=== PATIENT | female | born 1955 | race Caucasian/White ===

== ENCOUNTER 2017-10-26 07:54 | Emergency (ER) | payer OTHER ==
[~2017-10-26] VITALS: Ht 170.2 cm; Wt 52.8 kg
[2017-10-26 07:58] VITALS: BP 159/76; PULSE 93; RESP 16; TEMP 98.6; O2SAT 94
[2017-10-26] MEDS ORDERED: LOSA50TA PO (08:11)
[2017-10-26] MEDS ORDERED: LEVO25TA4 PO (08:11)
[2017-10-26] MEDS ORDERED: AMBI5TAB PO (08:11)
[2017-10-26] MEDS ORDERED: CLON0.5T PO (08:11)
[2017-10-26] MEDS ORDERED: BUPR150T3 (08:11)
[2017-10-26] MEDS ORDERED: HYDROmorphone HCL PF 1 MG/ML VIAL IV PUSH ONE (08:15)
--- NOTE | 2017-10-26 08:16 | PD ---
HPI Chief Complaint: Injury Time Seen by Provider: 08:04 Travel History International Travel<30 days: No Contact w/Intl Traveler<30days: No Traveled to known affect area: No History of Present Illness HPI Patient presents to the emergency department with right upper extremity pain and swelling after fall. States that she fell last night around 11 PM, but did not come to the emergency department and because everybody was sleep. States that she was going down the steps carrying items wearing flip-flops and she slipped and fell. Try to break her fall but she did not. Did not hit her head and denies LOC she is right-handed. Take any pain medication but try to ice her wrist. Pain of increased pain and swelling her right wrist. She denies fever, chills, vomiting, chest pain, shortness of breath, headache, numbness or tingling. Does report nausea color changes in her wrist secondary to bruising. States that she missed her breathing treatment this morning. PFSH Past Medical History Cardiovascular Problems: Yes (htn on meds) Respiratory: Yes (copd) ?: Not Social History Tobacco Use: Yes Allergies-Medications (Allergen,Severity, Reaction): Coded Allergies: No Known Allergies (Unverified , 10/26/17) Reported Meds & Prescriptions Reported Meds & Active Scripts Active [place] (Hydrocodone-Acetaminophen) 5 Mg-325 Mg Tab 1 Tab PO Q6H PRN 3 Days Reported Clonazepam 0.5 Mg Tab Unknown Dose PO BID Ambien (Zolpidem Tartrate) 5 Mg Tab Unknown Dose PO HS PRN Bupropion HCl ER 24 HR (Bupropion HCl) 150 Mg Tab Unknown Dose DAILY Losartan (Losartan Potassium) 50 Mg Tab Unknown Dose PO DAILY Levothyroxine (Levothyroxine Sodium) 25 Mcg Tab Unknown Dose PO DAILY Review of Systems Except as stated in HPI: all other systems reviewed are Neg Physical Exam Narrative GENERAL: Acute distress. SKIN: Focused skin assessment warm/dry. HEAD: Atraumatic. Normocephalic. EYES: Pupils equal and round. No scleral icterus. No injection or drainage. ENT: No nasal bleeding or discharge. Mucous membranes pink and moist. NECK: Trachea midline. No JVD. CARDIOVASCULAR: Regular rate and rhythm. No murmur appreciated. RESPIRATORY: No accessory muscle use. Positive expiratory wheezing bilaterally. GASTROINTESTINAL: Abdomen soft, non-tender, nondistended. Hepatic and splenic margins not palpable. MUSCULOSKELETAL: Right upper extremity: 2+ radial pulse, cap refill less than 3 seconds, cessation intact, swelling and bruising and tenderness to palpation along the wrist NEUROLOGICAL: Awake and alert. No obvious cranial nerve deficits. Motor grossly within normal limits. Normal speech. PSYCHIATRIC: Appropriate mood and affect; insight and judgment normal. Data Data Last Documented VS Vital Signs Date Time Temp Pulse Resp B/P (MAP) Pulse Ox O2 Delivery O2 Flow Rate FiO2 10/26/17 07:58 98.6 93 16 159/76 (103) 94 Orders Orders Hand, Limited (2vws) (10/26/17 08:10) Wrist, Complete (Zrb2ede) (10/26/17 08:10) Hydromorphone Pf Inj (Dilaudid Pf Inj) (10/26/17 08:15) Forearm (2vws) (10/26/17 08:12) Hydromorphone Pf Inj (Dilaudid Pf Inj) (10/26/17 08:30) Ondansetron Odt (Zofran Odt) (10/26/17 09:00) Albuterol-Ipratropium Neb (Duoneb Neb) (10/26/17 09:00) Splinting (10/26/17 ) MDM Medical Decision Making Medical Screen Exam Complete: Yes Emergency Medical Condition: Yes Interpretation(s) Last Impressions Radius/Ulna X-Ray 10/26/17 0812 Signed Impressions: CONCLUSION: Minimally displaced distal radius and ulnar fractures. Wrist X-Ray 10/26/17 0810 Signed Impressions: CONCLUSION: Minimally displaced distal radius and ulnar fractures. Hand X-Ray 10/26/17 0810 Signed Impressions: CONCLUSION: Minimally displaced distal radius and ulnar fractures. Differential Diagnosis Fracture, dislocation, arthritis, Narrative Course Patient presents to the emergency department status post fall with right upper extremity deformity, neurovascularly intact. She was given IV Dilaudid 1 mg, 4mg zofran ODT,and x-rays ordered. Also given duoneb x 2. 0852: Sugar tong splint ordered 0927: Lungs CTA bilat after breathing treatment and she feels better. Physician Communication Physician Communication 0926: Spoke to Dr. Cortez, orthopedic infection control nurse. Advised that he would like to do surgery, discussed with patient, but she advises that she wants splint and pain medication and will follow-up when she goes back home. She states that she is on vacation and does not want to have surgery. Diagnosis Primary Impression: Radius and ulna distal fracture Qualified Codes: S52.501A - Unspecified fracture of the lower end of right radius, initial encounter for closed fracture; S52.601A - Unspecified fracture of lower end of right ulna, initial encounter for closed fracture Referrals: Colton Cortez MD Med/Other Pt SpecificInfo: Prescription(s) given Scripts Hydrocodone-Acetaminophen ([place]) 5 Mg-325 Mg Tab 1 TAB PO Q6H Y for PAIN for 3 Days, #12 TAB 0 Refills Prov: Yvette Santos MD 10/26/17 Disposition: 01 DISCHARGE HOME Condition: Stable Yvette Santos MD Oct 26, 2017 08:16
[2017-10-26] MEDS ORDERED: HYDROmorphone HCL PF 2 MG/ML VIAL IV PUSH ONE (08:30)
--- NOTE | 2017-10-26 08:43 | RADRPT ---
EXAM DATE: 10/26/2017 8:39 AM EDT AGE/SEX: 62 years / Female INDICATIONS: Fell on stairs CLINICAL DATA: This is the patient's initial encounter. Patient reports that signs and symptoms have been present for 1 day and indicates a pain score of 10/10. MEDICAL/SURGICAL HISTORY: Chronic obstructive pulmonary disease. Hypertension. . Carpal tunnel COMPARISON: No prior exams available for comparison. FINDINGS: Views of the right hand demonstrates fractures of the distal radius and ulna with slight displacement . No other fractures. Soft tissue swelling. Carpus intact. CONCLUSION: Minimally displaced distal radius and ulnar fractures. Electronically signed by: Jadon Gracia MD 10/26/2017 8:42 AM EDT
--- NOTE | 2017-10-26 08:43 | RADRPT ---
EXAM DATE: 10/26/2017 8:33 AM EDT AGE/SEX: 62 years / Female INDICATIONS: Fell on stairs last night CLINICAL DATA: This is the patient's initial encounter. Patient reports that signs and symptoms have been present for 1 day and indicates a pain score of 10/10. MEDICAL/SURGICAL HISTORY: Chronic obstructive pulmonary disease. Hypertension. . Carpal tunnel COMPARISON: [facility], HAND RIGHT LIMITED (2VWS), 10/26/2017. . FINDINGS: Views of the right wrist are obtained. Distal radius and ulnar fractures is slight displacement. Soft tissue swelling. No other fractures CONCLUSION: Minimally displaced distal radius and ulnar fractures. Electronically signed by: Jadon Gracia MD 10/26/2017 8:41 AM EDT
--- NOTE | 2017-10-26 08:44 | RADRPT ---
EXAM DATE: 10/26/2017 8:37 AM EDT AGE/SEX: 62 years / Female INDICATIONS: Fell on stairs CLINICAL DATA: This is the patient's initial encounter. Patient reports that signs and symptoms have been present for 1 day and indicates a pain score of 10/10. MEDICAL/SURGICAL HISTORY: Chronic obstructive pulmonary disease. Hypertension. . carpal tunnel COMPARISON: No prior exams available for comparison. FINDINGS: Views of the right forearm are obtained. Distal radius and ulnar fractures are again seen. Soft tissu e swelling distally. Proximal forearm is intact. No radiopaque foreign bodies seen. CONCLUSION: Minimally displaced distal radius and ulnar fractures. Electronically signed by: Jadon Gracia MD 10/26/2017 8:43 AM EDT
[2017-10-26] MEDS ORDERED: NORC5TAB PO (08:55)
[2017-10-26] MEDS ORDERED: ONDANSETRON ODT 4 MG TAB PO ONE (09:00)
[2017-10-26] MEDS: RESP: ALBUTEROL 2.5 MG/IPRATROPIUM 0.5 MG NEB (SCH) INH (09:06)
== END 2017-10-26 10:06 | disposition home or self-care (01) ==
LOC: PHED 07:54
DX: S52.601A Unspecified fracture of lower end of right ulna, initial encounter for closed fracture (principal); S52.501A Unspecified fracture of the lower end of right radius, initial encounter for closed fracture; I10 Essential (primary) hypertension; J44.9 Chronic obstructive pulmonary disease, unspecified; W10.9XXA Fall (on) (from) unspecified stairs and steps, initial encounter
CPT/HCPCS: 29105; 73090; 73110; 73120; 94640; 94664; 96374; 99284; J1170